=== PATIENT | male | born 1960 | race Two or more races ===

== ENCOUNTER 2024-11-21 19:05 | Inpatient (IN) | payer SELFPAY ==
[2024-11-21 19:06] VITALS: BMI 29.7
--- NOTE | 2024-11-21 20:10 | EKG_ITS ---
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
[2024-11-21 20:19] VITALS: BP 113/69; PULSE 50; RESP 24; TEMP 36.5; O2SAT 97
--- NOTE | 2024-11-21 20:23 | XR_ITS ---
Examination: CT abdomen with intravenous contrast CT pelvis with intravenous contrast 2-D coronal reconstructions 2-D sagittal reconstructions Date and time of exam:November 21, 2024 10:13 PM INDICATIONS: Severe left upper abdominal pain today. CTDI: vol (mGy) 9.81 DLP: (mGycm) 604 Technique: Multiple axial sections of the abdomen and pelvis have been obtained. 64 slice high-resolution scanner used. 3 mm axial sections have been obtained, post intravenous injection 60 cc Isovue-370 2-D sagittal, coronal reconstructions obtained. Low dose protocols were performed. One or more of the following dose reduction techniques were used; automated exposure control, adjustment of the mA and/or KV according to patient size, use of iterative reconstruction technique. Findings: 16 mm liver cyst No gallstones Low density areas in the spleen consistent with infarcts No pancreatic or adrenal mass No gallstones 5.6 cm right renal cyst Abdominal aortic calcification no aneurysmal dilatation Small fat-containing umbilical hernia Normal appendix No bowel obstruction Intact urinary bladder Prostatomegaly transverse dimension 6.1 cm Mild lumbar spondylosis IMPRESSION: Multiple low-density areas in the spleen consistent with splenic infarcts
--- NOTE | 2024-11-21 20:23 | XR_ITS ---
Examination: PA chest single view TECHNIQUE: Upright PA chest single view Exam date and time: November 21, 2024 at 2035 hours Comparison July 01, 2023 INDICATIONS: Chest pain today. FINDINGS: Mild prominence left ventricle Mild vascular congestion. No lumbar pneumonia Suspicious for early pneumonia left base IMPRESSION: Suspicious for early pneumonia left base
--- NOTE | 2024-11-21 20:24 | EDRME_ITS ---
Rapid Medical Screening Exam ON LICENSE OF [facility] Arrival date/time: 11/21/24 19:05 64M with history of DM and CAD (patient takes daily aspirin) presents to ED with 1 day of epigastric and L-sided ab pain. Patient denies N/V, SOB, diarrhea, and dysuria. Chief Complaint: Abdominal Pain Vital signs: Vital Signs Temperature 97.7 F 11/21/24 20:19 Pulse Rate 50 L 11/21/24 20:19 Respiratory Rate 24 H 11/21/24 20:19 Blood Pressure 113/69 11/21/24 20:19 Pulse Oximetry (%) 97 11/21/24 20:19 Oxygen Delivery Method Room Air 11/21/24 20:19
[2024-11-21 20:59] LABS: Basophils # (Auto) 0.1 Thou/mm3 (0.0-0.2); Basophils % (Auto) 1 % (0-2.5); Eosinophils # (Auto) 0.1 Thou/mm3 (0.0-0.5); Eosinophils % (Auto) 0 % (0-10); Hematocrit 43.5 % (41.0-53.0); Hemoglobin 15.1 g/dL (13.5-16.0); Immature Granulocytes % (Auto) 1 % (0-0); Immature Granulocytes Auto 0.06 Thou/mm3 (0.00-0.00); Lymphocytes # (Auto) 1.6 Thou/mm3 (1.0-4.8); Lymphocytes % (Auto) 13 % (10-50); Mean Corpuscular HGB Conc 34.7 g/dl (31.0-37.0); Mean Corpuscular Hemoglobin 31.3 pg (25.0-35.0); Mean Corpuscular Volume 90 fL (80-100); Monocytes # (Auto) 0.7 Thou/mm3 (0.0-0.8); Monocytes % (Auto) 5 % (0-12); Neutrophils # (Auto) 10.3 Thou/mm3 (1.8-7.7); Neutrophils % (Auto) 81 % (37-80); Nucleated Red Blood Cell % 0 /100 WBC (0); Platelet Count 142 Thou/mm3 (140-440); RDW Standard Deviation 42.4 fL (35.1-43.9); Red Blood Count 4.83 Miln/mm3 (4.50-5.90); White Blood Count 12.7 Thou/mm3 (3.8-10.6)
[2024-11-21 20:59] LABS: Collection Type, Urine Clean Catch; Squamous Epithelial Cell,Urine 0 /hpf (0-5); WBC,Urine 0 /hpf (0-5)
[2024-11-21 21:08] LABS: Bilirubin,Urine Negative (Negative); Blood,Urine Negative (Negative); Clarity,Urine Clear (Clear/Hazy); Color,Urine Yellow (Lt Yel-Yel); Glucose, Urine 3+ (Negative); Ketones,Urine Negative (Negative); Leukocyte Esterase,Urine Negative (Negative); Nitrite,Urine Negative (Negative); Protein,Urine 1+ (Neg - Trace); RBC,Urine 2 /hpf (0-3); Specific Gravity,Urine 1.031 (1.001-1.035); Urobilinogen,Urine Negative mg/dL (0.0-1.0)
[2024-11-21 21:09] LABS: Sperm,Urine Present
[2024-11-21 21:14] LABS: Alanine Aminotransferase 20 U/L (10-49); Albumin, Serum 4.4 gm/dL (3.4-4.8); Albumin/Globulin Ratio 1.6 (1.2-2.2); Alkaline Phosphatase 58 U/L (46-116); Anion Gap 6 (7-16); Aspartate Amino Transferase 21 U/L (0-34); BUN/Creatinine Ratio 15 Ratio (12-20); Bilirubin,Total 0.5 mg/dL (0.3-1.2); Blood Urea Nitrogen 15 mg/dL (9-23); Calcium 9.7 mg/dL (8.3-10.6); Calcium (Corrected) 9.7 mg/dL (8.5-10.1); Carbon Dioxide 22.6 mMol/L (20.0-31.0); Chloride 107 mMol/L (98-107); Estimated Creatinine Clearance 96.2 mL/min (>60); Globulin 2.7 gm/dL (2.3-3.5); Glucose 119 mg/dL (74-106); Lipase 32 U/L (12-53); Osmolality,Calculated 273 (275-295); Potassium 4.5 mMol/L (3.4-5.1); Sodium 136 mMol/L (136-145); Total Protein 7.1 gm/dL (5.7-8.2); Troponin I < 0.020 ng/mL (0.0-0.045); eGFR > 60 See Note
[2024-11-21 23:39] VITALS: BP 130/77; PULSE 50; RESP 21; TEMP 37.1
[2024-11-22] VITALS (14 sets, daily range): BP systolic 120–138; BP diastolic 51–76; PULSE 46–54; RESP 12–18; TEMP 36.3–36.8; O2SAT 91–99; BMI 31.5
--- NOTE | 2024-11-22 00:01 | PD.EDABDPN ---
ED Abdominal Pain RME/HPI General Chief Complaint: Abdominal Pain Stated complaint: LUQ ABD PAIN 05/02, SINCE 1PM Arrival date/time: 11/21/24 19:05 RME / HPI RME / HPI narrative: 11/21/24 19:05 64M with history of DM and CAD (patient takes daily aspirin) presents to ED with 1 day of epigastric and L-sided ab pain. Patient denies N/V, SOB, diarrhea, and dysuria. ------- Dr. Pollard?s Main ED Evaluation: Related Data Home Medications ?Medication ?Instructions ?Recorded ?Confirmed aspirin 325 mg tablet 325 mg PO QDAY 12/20/20 12/20/20 famotidine 40 mg tablet 40 mg PO QDAY PRN Heartburn 12/20/20 12/20/20 losartan 50 mg tablet 50 mg PO QDAY 12/20/20 12/20/20 metoprolol succinate 25 mg 25 mg PO QDAY 12/20/20 12/20/20 tablet,extended release 24 hr repaglinide 1 mg tablet 1 mg PO QDAY 12/20/20 12/20/20 rosuvastatin 20 mg tablet 20 mg PO QDAY 12/20/20 12/20/20 sitagliptin phos 50 mg-metformin 1 tab PO QDAY 12/20/20 12/20/20 ER 1,000 mg tablet,extend rel 24h mp (Janumet XR) Allergies Allergy/AdvReac Type Severity Reaction Status Date / Time No Known Allergies Allergy Verified 07/01/23 15:08 Review of Systems Review of Systems Systems Reviewed: All systems reviewed, normal except as documented ED Exam Narrative Physical exam: GENERAL APPEARANCE: alert and oriented x 4, well-developed, well-nourished, no acute distress VITALS: All vitals were reviewed and the pulse ox is 97% on room air, which is normal according to my interpretation. HEENT: Normocephalic, atraumatic; pupils equal, round, reactive to light; EOMI; mucous membranes pink, moist; oropharynx clear NECK: Supple LUNGS: CTABL; no wheezes, no rales, no rhonchi HEART: Regular rate, regular rhythm; normal S1, S2; no murmurs ABDOMEN: non distended; normal BS; soft, no tenderness, no guarding, no rebound; no masses, no organomegaly, no hernia BACK: no CVA tenderness EXTREMITIES: atraumatic; no edema NEUROLOGIC: awake; alert and oriented x4; cranial nerves II-XII grossly intact; no focal sensory or motor deficits PSYCHIATRIC: appropriate mood and affect SKIN: warm, dry, normal color; no rashes Course Quality Measures none Orders Category Date Time Status CT Screening NOW Care 11/21/24 20:24 Active EKG (ED ONLY) *Do not use* NOW Care 11/21/24 20:10 Completed Insert IV NOW Care 11/21/24 20:[address] abdomen pelvis w con Stat Exams 11/21/24 20:23 Completed EKG (ED Only) Stat Exams 11/21/24 20:10 Draft XR chest 1V portable Stat Exams 11/21/24 20:23 Completed CBC Stat Lab 11/21/24 20:42 Completed Comprehensive Metabolic Panel Stat Lab 11/21/24 20:42 Completed Lipase Stat Lab 11/21/24 20:42 Completed Troponin I Stat Lab 11/21/24 20:42 Completed Urinalysis Stat Lab 11/21/24 20:54 Completed Vital Signs Vital signs: Vital Signs Temperature 97.7 F 11/21/24 20:19 Pulse Rate 50 L 11/21/24 20:19 Respiratory Rate 24 H 11/21/24 20:19 Blood Pressure 113/69 11/21/24 20:19 Pulse Oximetry (%) 97 11/21/24 20:19 Oxygen Delivery Method Room Air 11/21/24 20:19 Abdominal Pain MDM Patient data External records reviewed:: [facility] previous records (Per chart review, patient was seen her) Discharge Plan Prescriptions/Referrals Prescriptions/Med Rec: No Action losartan 50 mg Tablet 50 mg PO QDAY aspirin 325 mg Tablet 325 mg PO QDAY famotidine 40 mg Tablet 40 mg PO QDAY PRN (Reason: Heartburn) metoprolol succinate 25 mg tablet extended release 24 hr 25 mg PO QDAY repaglinide 1 mg Tablet 1 mg PO QDAY rosuvastatin 20 mg tablet 20 mg PO QDAY Patient Comments: TAKE 1 TABLET BY MOUTH EVERY DAY Janumet XR 50-1,000 mg tablet, ER multiphase 24 hr 1 tab PO QDAY Referrals: No Primary/Family,Physician [Primary Care Provider] - In 1 week Patient/Caregiver Discharge Instructions Print Language: Burmese
--- NOTE | 2024-11-22 00:33 | EDNOTE_ITS ---
ED Abdominal Pain RME/HPI General Chief Complaint: Abdominal Pain Stated complaint: LUQ ABD PAIN 9/10, SINCE 1PM Arrival date/time: 11/21/24 19:05 Source: patient Mode of arrival: ambulatory Limitations: no limitations RME / HPI RME / HPI narrative: 11/21/24 19:05 64M with history of DM and CAD (patient takes daily aspirin) presents to ED with 1 day of epigastric and L-sided ab pain. Patient denies N/V, SOB, diarrhea, and dysuria. Dr. Pollard?s Main ED Evaluation: 64-year-old male with a medical history of hypertension, type 2 diabetes mellitus, hyperlipidemia, coronary artery disease s/p stent placement, atrial fibrillation, and daily tobacco use presents to the ED with acute abdominal pain that began around 1300 the previous day. He localizes the pain to the epigastric and left upper quadrant regions, describing it as constant with waxing and waning intensity, initially rated 9/10. He denies associated symptoms including nausea, vomiting, diarrhea, dysuria, chest pain, fever, chills, cough, or shortness of breath. No recent illness or travel. He recalls eating lunch around 11 AM prior to symptom onset. He has a history of myocardial infarction and is currently on aspirin and metoprolol. He occasionally notices a low heart rate but denies dizziness or syncope. No known history of clotting disorders. Patient follows with local skoog operator Dr. Tejada. Related Data Home Medications ?Medication ?Instructions ?Recorded ?Confirmed aspirin 325 mg tablet 325 mg PO QDAY 12/20/2011/23 famotidine 40 mg tablet 40 mg PO QDAY PRN Heartburn 12/20/20 12/20/20 losartan 50 mg tablet 50 mg PO QDAY 12/20/2012/20 metoprolol succinate 25 mg 25 mg PO QDAY 12/20/2011/23 tablet,extended release 24 hr repaglinide 1 mg tablet 1 mg PO QDAY 12/20/20 rosuvastatin 20 mg tablet 20 mg PO QDAY 12/20/2012/20 sitagliptin phos 50 mg-metformin 1 tab PO QDAY 1 12/20/20 ER 1,000 mg tablet,extend rel 24h mp (Janumet XR) Allergies Allergy/AdvReac Type Severity Reaction Status Date / Time No Known Allergies Allergy Verified 07/01/23 15:08 Review of Systems Review of Systems Systems Reviewed: All systems reviewed, normal except as documented Past Medical History Past Medical History CARDIAC: Positive Cardiac Disorders, Myocardial Infarction, Atrial Fibrillation and Hypertension; Negative Congestive Heart Failure RESPIRATORY: Negative Chronic Obstructive Pulmonary Disease (COPD) or Asthma GENITOURINARY: Negative Renal Disease ENDOCRINE: Positive Diabetes Mellitus Type 2; Negative Diabetes Mellitus Type 1 HEMATOLOGIC: Negative Sickle Cell Disease Surgical History SURGICAL: Positive Cardiac Surgery and Coronary Stent Social History SMOKING STATUS: Current every day smoker SECOND HAND EXPOSURE: No SUBSTANCE USE: does not use ED Exam Narrative Physical exam: GENERAL APPEARANCE: alert and oriented x 4, well-developed, well-nourished, no acute distress VITALS: All vitals were reviewed and the pulse ox is % on room air, which is normal according to my interpretation. HEENT: Normocephalic, atraumatic; pupils equal, round, reactive to light; EOMI; mucous membranes pink, moist; oropharynx clear NECK: Supple LUNGS: CTABL; no wheezes, no rales, no rhonchi HEART: Regular rate, regular rhythm; normal S1, S2; no murmurs ABDOMEN: non distended; normal BS; soft, tenderness to left upper quadrant, no guarding, no rebound; no masses, no organomegaly, no hernia BACK: no CVA tenderness EXTREMITIES: atraumatic; no edema NEUROLOGIC: awake; alert and oriented x4; cranial nerves II-XII grossly intact; no focal sensory or motor deficits PSYCHIATRIC: appropriate mood and affect SKIN: warm, dry, normal color; no rashes General Limitations: Present no limitations Course Course Course Narrative: CXR is ordered for determining etiology of chest pain. Quality Measures none Orders Category Date Time Status CT Screening NOW Care 11/21/24 20:24 Active EKG (ED ONLY) *Do not use* NOW Care 11/21/24 20:10 Completed Insert IV NOW Care 11/21/24 20:23 Active Consult to General Surgery Stat Cons 11/22/24 01:[address] abdomen pelvis w con Stat Exams 11/21/24 20:23 Completed EKG (ED Only) Stat Exams 11/21/24 20:10 Draft XR chest 1V portable Stat Exams 11/21/24 20:23 Completed Blood Culture (Lab) Stat Lab 11/22/24 01:30 Received CBC Stat Lab 11/21/24 20:42 Completed Comprehensive Metabolic Panel Stat Lab 11/21/24 20:42 Completed Lactate (Lactic Acid) Stat Lab 11/22/24 01:35 Completed Lipase Stat Lab 11/21/24 20:42 Completed Procalcitonin Stat Lab 11/22/24 01:35 Completed Troponin I Stat Lab 11/21/24 20:42 Completed Urinalysis Stat Lab 11/21/24 20:54 Completed HYDROmorphone INJ [Dilaudid Inj] Med 11/22/24 01:30 Discontinued 0.5 mg IVP Q30MIN PRN Ondansetron Inj [Zofran Inj] Med 11/22/24 01:30 Discontinued 4 mg IV X1 ONE Sodium Chloride 0.9% 1000 ml [Ns] 1,000 ml Med 11/22/24 01:30 Discontinued IV 999 mls/hr Vital Signs Vital signs: Vital Signs Temperature 97.7 F 11/21/24 20:19 Pulse Rate 50 L 11/21/24 20:19 Respiratory Rate 24 H 11/21/24 20:19 Blood Pressure 113/69 11/21/24 20:19 Pulse Oximetry (%) 97 11/21/24 20:19 Oxygen Delivery Method Room Air 11/21/24 20:19 Abdominal Pain MDM MDM Narrative MDM Narrative:: 64-year-old male with significant cardiovascular history, including CAD s/p stent placement, atrial fibrillation, hypertension, diabetes mellitus, and hyperlipidemia, presents with acute abdominal pain that began around 1300 the previous day. He localizes the pain to the epigastric and left upper quadrant regions, describing it as constant with waxing and waning intensity, initially rated 9/10 on arrival. On this encounter, he reports it is 6/10. Plan includes blood cultures, lactic acid, and procalcitonin; IV fluid resuscitation; and symptom management with IV hydromorphone for pain and ondansetron for nausea. Initial workup ordered by the midlevel provider includes EKG, chest X-ray, CT abdomen/pelvis with contrast, CBC, CMP, lipase, troponin, and urinalysis. Differential diagnoses includes gastritis, splenic infarcts, small bowel obstruction. 0129 Case was discussed with Dr. Abraham, general surgeon on-call, who accepted the consult. 0132 Case was further discussed with Dr. Jeffrey, who agreed to evaluate the patient for hospital admission. Scribe Attestation: I, Fouzia Mejia, am scribing for and in the presence of Dr. Pollard. Provider Notation: Although this document has been carefully reviewed, there may still be some phonetic and other typographical errors. These errors are purely grammatical due to imperfections in the software program and should not be construed in any way to compromise the substance of the patient's medical care during this visit. Patient data External records reviewed:: [facility] previous records Clinical information provided by:: patient Social determinants that could affect healthcare access:: none Patient has the following chronic illnesses:: see PMH How is presenting disease/condition affected by chronic disease/condition?: uneffected by Evaluation data The following diagnostics were reviewed and interpreted by me:: lab results, radiology exam(s) and EKG tracing(s) Lab and/or radiology exams considered but not ordered:: na Interpretation Summary: I personally reviewed the radiology data and agree with the radiologist's interpretation. Examination: PA chest single view TECHNIQUE: Upright PA chest single view Exam date and time: November 21, 2024 at 2035 hours Comparison July 01, 2023 INDICATIONS: Chest pain today. FINDINGS: Mild prominence left ventricle Mild vascular congestion. No lumbar pneumonia Suspicious for early pneumonia left base IMPRESSION: Suspicious for early pneumonia left base Examination: CT abdomen with intravenous contrast CT pelvis with intravenous contrast Date and time of exam:November 21, 2024 10:13 PM INDICATIONS: Severe left upper abdominal pain today. Findings: 16 mm liver cyst No gallstones Low density areas in the spleen consistent with infarcts No pancreatic or adrenal mass No gallstones 5.6 cm right renal cyst Abdominal aortic calcification no aneurysmal dilatation Small fat-containing umbilical hernia Normal appendix No bowel obstruction Intact urinary bladder Prostatomegaly transverse dimension 6.1 cm Mild lumbar spondylosis IMPRESSION: Multiple low-density areas in the spleen consistent with splenic infarcts Medications / Prescriptions Medications or Prescriptions considered but not ordered:: na Medication administrations:: Medication Administration History Acetaminophen (Acetaminophen 325 Mg Tablet) 650 mg PO Q6H PRN PRN Reason: Fever >101.5 Stop: 12/22/24 01:49 Hydrocodone Bitart/Acetaminophen (Hydrocodone/Apap 5/325 Tablet) 1 tab PO Q4HR PRN PRN Reason: PAIN SCALE 4-6 (Moderate Stop: 11/27/24 01:49 Albuterol/Ipratropium (Albuterol/Ipratropium (Duoneb) Rt Justine 3 Ml Nebu) 3 ml INH Q2HR PRN PRN Reason: SHORTNESS OF BREATH OR WHEEZE Stop: 12/22/24 04:10 Atorvastatin Calcium (Atorvastatin Calcium 20 Mg Tablet) 80 mg PO HS SHERIDAN Stop: 12/22/24 20:59 Hydromorphone HCl (Hydromorphone Inj 2 Mg/Ml Vial) 0.5 mg IVP Q2HR PRN PRN Reason: Pain >7/10 Ondansetron HCl (Ondansetron Inj 2 Mg/Ml Inj 2 Ml) 4 mg IV Q6HR PRN; Protocol PRN Reason: NAUSEA OR VOMITING Stop: 12/22/24 04:11 Pantoprazole Sodium (Pantoprazole Inj 40 Mg Vial) 40 mg IVP QDAY SHERIDAN Stop: 12/22/24 08:59 Discontinued Medications Hydromorphone HCl (Hydromorphone Inj 2 Mg/Ml Vial) 0.5 mg IVP Q30MIN PRN PRN Reason: PAIN Stop: 11/27/24 01:29 Last Admin: 11/22/24 01:40 Dose: 0.5 mg Documented By: EF Sodium Chloride (Ns) 1,000 mls @ 999 mls/hr IV .Q1H1M ONE Stop: 11/22/24 02:30 Last Infusion: 11/22/24 02:41 Dose: Infused Documented By: Admin: 11/22/24 01:40 Dose: 999 mls/hr Documented By: EF Ondansetron HCl (Ondansetron Inj 2 Mg/Ml Inj 2 Ml) 4 mg IV X1 ONE; Protocol Stop: 11/22/24 01:31 Last Admin: 11/22/24 01:40 Dose: 4 mg Documented By: EF as above, if any Consultations Consultation(s) initiated? (list below): Yes Consultation #1 (Physician, Specialty, Details): See narrative Diagnosis Differential diagnosis abdominal pain: other (See MDM) Most likely diagnosis given after review of the tests above:: see clinical impression below Admission Indicated Admission indicated?: indicated Explain why admission is indicated or not indicated:: Given the patient's complex medical history, need for specialist evaluation, and potential need for surgical or medical management, hospital admission is warranted for further workup and monitoring. Admission Request Was there a request for admission?: Yes Admission Attestation Admission request attestation: Discussed case with [] from Hospitalist service regarding admission. Discussed patients ED course, exam findings, labs, and radiology results. The Hospitalist [agrees,declines] to accept the patient for admission. Disposition Plan Disposition Plan: Admit Discharge Plan Problem List Clinical Impression: Infarction of spleen
[2024-11-22] MEDS: SODIUM CHLORIDE 0.9% 1000 ML 1,000 ML 999 ML IV (01:40)
[2024-11-22] MEDS: HYDROmorphone INJ 2 MG/ML VIAL 0.5 MG IVP ×3 (01:40→09:51)
[2024-11-22] MEDS: ONDANSETRON INJ 2 MG/ML INJ 2 ML 4 MG IV (01:40)
[2024-11-22 01:42] LABS: Lactate (Lactic Acid) 1.1 mMol/L (0.4-2.0)
--- NOTE | 2024-11-22 02:00 | XR_ITS ---
Examination: CTA abdomen, with intravenous contrast. CTA pelvis, with intravenous contrast. 2-D sagittal and coronal reconstructions. 3-D reconstructions. Date and time of exam: November 22, 2024 at 0233 hours Comparison November 21, 2024 INDICATIONS: Onset of abdominal pain in the left upper abdomen today, splenic infarct on CT abdomen and pelvis with contrast November 21, 2024 CTDI vol (mgy) 10.7 DLP (MGycm) 793 Technique: Multiple CTA images, 2.0 mm slice thickness, abdomen, pelvis, with the high-resolution 64 slice scanner. 100 cc Isovue-370 is administered intravenously. Sagittal and coronal 2-D reconstructions are obtained. 3-D reconstructions, angiographic images are obtained. 3-D postprocessing, including vascular maximum intensity projections. Low dose protocols were performed. One or more of the following dose reduction techniques were used; automated exposure control, adjustment of the mA and/or KV according to patient size, use of iterative reconstruction technique. Findings: Diffuse fatty infiltration throughout the liver No gallstones Large wedge-shaped defects in the spleen again identified Axial image 128 consistent with thrombus in a branch of the splenic artery Renal parenchymal scar formation Right renal cyst again noted No abnormal contrast extravasation and bowel No bowel obstruction Urinary bladder intact IMPRESSION: Splenic infarcts Axial image 128 demonstrates thrombus in a branch of the left splenic artery
[2024-11-22 03:52] LABS: Procalcitonin 0.07 ng/ml (0.0-0.49)
--- NOTE | 2024-11-22 04:05 | PC.NURSE ---
WE HAD DOWN TIME FROM [id number].
--- NOTE | 2024-11-22 04:07 | ESHP_ITS ---
Documentation for date of: 11/22/24 HPI History of Present Illness Chief complaint: abdominal pain History of present illness: The patient is 64-year-old male with previous medical history of hypertension, CAD s/p stent placement (2001 or 2002), type 2 diabetes who came to the ED due to severe abdominal pain 9 out of 10, located in the epigastric and left upper quadrant that started at approximately 1 PM the previous day. He reports pain as constant with waxing and waning intensity. After pain medications he reports pain improving, looks more comfortable. He reported that he had lunch as usual at approximately 11 AM. He denies traumas, nausea, vomiting, bloody, black stools, dysuria, shortness of breath, chest pain. In the ED he was hemodynamically stable, saturated well on room air, labs were significant for leukocytosis, hemoglobin 15.1. CT abdomen pelvis showed multiple splenic infarcts, chest x-ray showed early pneumonia left base. The patient is going to be admitted for severe abdominal pain due to multiple splenic infarcts for treatment and management and possible surgical intervention. Social history: Unemployed, earlier worked at [employer]. Smokes approximately 10 cigarettes/day for 20 years. Reports alcohol use once a few months. Denies using recreational drugs recently. Meds: Losartan 50 mg, rosuvastatin 20 mg, metoprolol 25 mg, repaglinide 1 mg, aspirin 325 mg, famotidine 40 mg, Januvia. Surgical history: Stent placement in 2001 or 2002. Review of Systems Review of Systems Systems Reviewed: All systems reviewed, normal except as documented Past Medical History Past Medical History CARDIAC: Positive Cardiac Disorders, Myocardial Infarction, Atrial Fibrillation and Hypertension; Negative Congestive Heart Failure RESPIRATORY: Negative Chronic Obstructive Pulmonary Disease (COPD) or Asthma GENITOURINARY: Negative Renal Disease ENDOCRINE: Positive Diabetes Mellitus Type 2; Negative Diabetes Mellitus Type 1 HEMATOLOGIC: Negative Sickle Cell Disease Surgical History SURGICAL: Positive Cardiac Surgery and Coronary Stent Social History SMOKING STATUS: Current every day smoker SECOND HAND EXPOSURE: No SUBSTANCE USE: does not use Exam Vital Signs Temp Pulse Resp BP Pulse Ox O2 Del Method 98.1 F 49 L 18 123/70 96 Room Air 11/22/24 00:05 11/22/24 00:05 11/22/24 00:05 11/22/24 00:05 11/22/24 00:05 11/22/24 00:05 Narrative Exam Physical Exam General: Awake and in no acute distress. Conversational and non-toxic appearing. HEENT: Normocephalic, atraumatic, mucous membranes moist. Heart: Regular rate and rhythm, no murmurs. Lungs: Mild diffuse wheezing Abdomen: Soft, nondistended, LUQ tenderness, positive bowel sounds. ?No guarding or rebound tenderness. Neurologic: Alert and oriented x3, no gross neurological deficit, and patient able to move all 4 extremities. Extremities: No edema. Skin: No rash or ecchymoses. Results: Labs 11/22/24 04:45 11/22/24 04:45 Labs: Short CBC 11/21/24 Range/Units 20:42 WBC 12.7 H (3.8-10.6) Thou/mm3 Hgb 15.1 (13.5-16.0) g/dL Hct 43.5 (41.0-53.0) % Plt Count 142 (140-440) Thou/mm3 BMP 11/21/24 20:42 Sodium 136 Potassium 4.5 Chloride 107 Carbon Dioxide 22.6 BUN 15 Creatinine 1.0 Glucose 119 H Calcium 9.7 Cardiac Enzymes 11/21/24 Range/Units 20:42 Troponin I < 0.020 (0.0-0.045) ng/mL Liver Function 11/21/24 Range/Units 20:42 Total Bilirubin 0.5 (0.3-1.2) mg/dL AST 21 (0-34) U/L ALT 20 (10-49) U/L Alkaline Phosphatase 58 (46-116) U/L Albumin 4.4 (3.4-4.8) gm/dL Urine 11/21/24 Range/Units 20:54 Urine Color Yellow (Lt Yel-Yel) Urine Clarity Clear (Clear/Hazy) Urine pH 6.0 (5.0-7.0) Ur Specific [place] 1.031 (1.001-1.035) Urine Protein 1+ A (Neg - Trace) Urine Glucose (UA) 3+ A (Negative) Quality Measures Quality Measures none Medications Home Medications and Allergies Home Medications ?Medication ?Instructions ?Recorded ?Confirmed ?Type aspirin 325 mg tablet 325 mg PO QDAY 12/20/2010/17 History famotidine 40 mg tablet 40 mg PO QDAY PRN Heartburn 12/20/20 11/22/24 History losartan 50 mg tablet 50 mg PO QDAY 12/20/2011/22 History metoprolol succinate 25 mg 25 mg PO QDAY 12/20/2010/17 History tablet,extended release 24 hr repaglinide 1 mg tablet 1 mg PO QDAY 12/20/20 History rosuvastatin 20 mg tablet 20 mg PO QDAY 12/20/2011/22 History sitagliptin phos 50 mg-metformin 1 tab PO QDAY 1 11/22/24 History ER 1,000 mg tablet,extend rel 24h mp (Janumet XR) Allergies Allergy/AdvReac Type Severity Reaction Status Date / Time No Known Allergies Allergy Verified 07/01/23 15:08 Visit Medications Acetaminophen (Acetaminophen 325 Mg Tablet) 650 mg PO Q6H PRN PRN Reason: Fever >101.5 Stop: 12/22/24 01:49 Hydrocodone Bitart/Acetaminophen (Hydrocodone/Apap 5/325 Tablet) 1 tab PO Q4HR PRN PRN Reason: PAIN SCALE 4-6 (Moderate Stop: 11/27/24 01:49 Hydromorphone HCl (Hydromorphone Inj 2 Mg/Ml Vial) 0.5 mg IVP Q2HR PRN PRN Reason: Pain >7/10 Pantoprazole Sodium (Pantoprazole Inj 40 Mg Vial) 40 mg IVP QDAY SHERIDAN Stop: 12/22/24 08:59 Discontinued Medications Hydromorphone HCl (Hydromorphone Inj 2 Mg/Ml Vial) 0.5 mg IVP Q30MIN PRN PRN Reason: PAIN Stop: 11/27/24 01:29 Last Admin: 11/22/24 01:40 Dose: 0.5 mg Sodium Chloride (Ns) 1,000 mls @ 999 mls/hr IV .Q1H1M ONE Stop: 11/22/24 02:30 Last Infusion: 11/22/24 02:41 Dose: Infused Ondansetron HCl (Ondansetron Inj 2 Mg/Ml Inj 2 Ml) 4 mg IV X1 ONE; Protocol Stop: 11/22/24 01:31 Last Admin: 11/22/24 01:40 Dose: 4 mg Assessment & Plan Plan The patient is 64-year-old male with previous medical history of hypertension, CAD s/p stent placement (2001 or 2002), type 2 diabetes who came to the ED due to severe abdominal pain 9 out of 10, located in the epigastric and left upper quadrant that started at approximately 1 PM the previous day. The patient was admitted for severe abdominal pain due to multiple splenic infarcts for treatment and management and possible surgical intervention. #Intractable abdominal pain #Multiple splenic infarct Ddx: embolic vs infectious Patient reports severe abdominal pain 9 out of 10, located in the epigastric and left upper quadrant that started at approximately 1 PM the previous day. He reports pain as constant with waxing and waning intensity. After pain medications he reports pain improving, looks more comfortable. Patient also has history of CAD, so there's suspicion of thromboembolu/thrombosis in the splenic/truncus coeliacus branches. Plan: - CTA abdomen with contrast - Dr. 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 Reports taking aspirin, last dose was 11/21 in the AM. Plan: - holding blood thinners, antiaggregation agents due to possibility of surgery - holding home BP medication due to normal blood pressure for now - atorvastatin 80 mg hs #Type 2 diabetes Plan: - SSI - hypoglycemia protocol - a1c ordered Health maintenance: FEN: NPO (possible surgery) DVT prophylaxis: SCDs GI prophylaxis: none Dispo: med surg CODE STATUS: Full code Plan of care discussed with attending Dr. David, PGY-[address] Jeffrey. Alysha Horton MD, PGY 1. Attending Provider Attestation/Addendum I attest that I was physically present for the evaluation, physical examination, lab and imaging review of the patient with the residents. I discussed the case with the residents and agree with the findings and plans of care as documented above. Patient is a 64 years old male with past medical history of hypertension, CAD status post stent placement, type 2 diabetes mellitus who presented to the ED with complaint of abdominal pain in the epigastric and left upper quadrant. Patient has been having severe pain since yesterday afternoon. He denies any nausea, vomiting, bloody or black tarry stool, fever or chills. Also denied any urinary symptoms. In the ED, his vitals were within normal limits. Lab results show WBC of 12.7, rest of the labs were nonconcerning. Patient underwent CT abdomen/pelvis which showed multiple low-density areas in the spleen consistent with splenic infarcts. General surgery was contacted by the ED, who recommended admission for further management. We will admit the patient for management of intractable abdominal pain secondary to multiple splenic infarct. We will start him on analgesics regimen. As needed antiemetics. We will obtain CTA abdomen/pelvis to look for possible cause of splenic infarct. We will keep patient n.p.o. until evaluated by general surgery. Started on insulin regimen for diabetes. Eliazar David MD
[2024-11-22 04:54] LABS: Basophils # (Auto) 0.1 Thou/mm3 (0.0-0.2); Basophils % (Auto) 1 % (0-2.5); Eosinophils # (Auto) 0.2 Thou/mm3 (0.0-0.5); Eosinophils % (Auto) 2 % (0-10); Hematocrit 40.6 % (41.0-53.0); Hemoglobin 14.2 g/dL (13.5-16.0); Immature Granulocytes % (Auto) 0 % (0-0); Immature Granulocytes Auto 0.03 Thou/mm3 (0.00-0.00); Lymphocytes # (Auto) 2.7 Thou/mm3 (1.0-4.8); Lymphocytes % (Auto) 26 % (10-50); Mean Corpuscular Hemoglobin 31.3 pg (25.0-35.0); Mean Corpuscular Volume 90 fL (80-100); Monocytes # (Auto) 0.8 Thou/mm3 (0.0-0.8); Monocytes % (Auto) 8 % (0-12); Neutrophils # (Auto) 6.6 Thou/mm3 (1.8-7.7); Neutrophils % (Auto) 63 % (37-80); Nucleated Red Blood Cell % 0 /100 WBC (0); Platelet Count 129 Thou/mm3 (140-440); RDW Standard Deviation 43.2 fL (35.1-43.9); Red Blood Count 4.53 Miln/mm3 (4.50-5.90); White Blood Count 10.4 Thou/mm3 (3.8-10.6)
[2024-11-22 05:32] LABS: Alanine Aminotransferase 14 U/L (10-49); Albumin, Serum 3.6 gm/dL (3.4-4.8); Albumin/Globulin Ratio 1.6 (1.2-2.2); Alkaline Phosphatase 53 U/L (46-116); Anion Gap 4 (7-16); Aspartate Amino Transferase 15 U/L (0-34); BUN/Creatinine Ratio 14 Ratio (12-20); Bilirubin,Total 0.6 mg/dL (0.3-1.2); Blood Urea Nitrogen 14 mg/dL (9-23); Calcium 8.4 mg/dL (8.3-10.6); Calcium (Corrected) 8.7 mg/dL (8.5-10.1); Carbon Dioxide 26.1 mMol/L (20.0-31.0); Cardiac Risk Estimate 2.9 RATIO (4.0-6.7); Chloride 109 mMol/L (98-107); Cholesterol 116 mg/dL (132-200); Estimated Creatinine Clearance 96.2 mL/min (>60); Globulin 2.3 gm/dL (2.3-3.5); Glucose 107 mg/dL (74-106); HDL Cholesterol 40 mg/dL (40-60); LDL Cholesterol,Calculated 58 mg/dL (0-130); Magnesium 2.1 mg/dL (1.6-2.6); Osmolality,Calculated 278 (275-295); Potassium 4.4 mMol/L (3.4-5.1); Sodium 139 mMol/L (136-145); Thyroid Stimulating Hormone 2.58 uIU/mL (0.55-4.78); Total Protein 5.9 gm/dL (5.7-8.2); Triglycerides 92 mg/dL (30-150); eGFR > 60 See Note
--- NOTE | 2024-11-22 07:16 | PC.NURSE ---
Received report from John KRUGER and assumed care of patient. Patient A&O x 4 with complaint of pain 04/01.
--- NOTE | 2024-11-22 07:36 | PC.CC ---
Patient is a 47 year-old female for GI Bleed Work Up. Shawna LOPEZ made [id number] contact with patient. ASW introduced self, role, and reason for visit. Patient appeared alert and oriented to self, location, and situation. Patient was pleasant and engaged in initial assessment. Patient confirmed information on demographics and reports to living alone. Patient reports that the medical decision maker if something should happen it would be her aunt, Hannah Sarah . At home patient ambulates independently and completes her own ADLs. Patient does not use any DME at home. Patient receives primary care at [facility] on the [address]. Upon discharge patient plans to return home. loan services professional to follow up with any discharge plan.
--- NOTE | 2024-11-22 07:49 | PC.CC ---
Patient is a 64 year-old male who presents to the hospital for Abdominal Pain. Shawna LOPEZ made [id number] contact with patient. ASW introduced self, role, and reason for visit. Patient appeared alert and oriented to self, location, and situation. Patient was pleasant and engaged in initial assessment. Patient confirmed information on the demographics and reports to living with his , Yamila Santos . Patient's is his medical decision maker in the event he is unable to make his own medical decisions. At home patient ambulates independently and and completes his own ADLs. Patient does not require the use of any DME. Patient receives primary care with Dr. Martinez and uses [facility] for prescription medications. Upon discharge the patient plans to return back home. guest services associate to follow up with any discharge needs.
[2024-11-22] MEDS: PANTOPRAZOLE INJ 40 MG VIAL IVP (09:09)
--- NOTE | 2024-11-22 10:03 | PC.LAC ---
Report given to Ladan KRUGER.
--- NOTE | 2024-11-22 11:16 | ESPR_ITS ---
Documentation for date of: 11/22/24 Subjective Subjective Interval history: Cj Santos is a 64-year-old male with a PMHx of CAD status post stent (2001 or 2002), type 2 diabetes mellitus, and hypertension who presented on 11/22 with acute onset epigastric/left upper quadrant abdominal pain. Patient states that pain started at 1 PM on 0/, 9/10 in intensity, that waxed and waned. Denies trauma, nausea, vomiting, change in bowel habits, chest discomfort, shortness of breath. CT A/P showed splenic infarction and CTA A/P showed possible thrombus in branch of splenic artery. 11/22: Seen and examined at bedside in ED. 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 Denies being on any blood thinners other than baby aspirin. Otherwise, patient does not have any other complaints at this time. Exam Vital Signs Temp Pulse Resp BP Pulse Ox O2 Del Method O2 Flow Rate 98.3 F 51 L 17 127/73 95 Nasal Cannula 2 11/22/24 10:20 11/22/24 10:20 11/22/24 10:20 11/22/24 10:20 11/22/24 10:20 11/22/24 10:20 11/22/24 10:20 Narrative Exam General: AOx3, no acute distress, able to speak full sentences HEENT: NC/AT, mucous membranes moist, bilateral sclera anicteric Cardiovascular: regular rate and rhythm, S1/S2 present, no murmurs appreciated Pulmonary: clear to auscultation bilaterally, no rales/rhonchi/wheezes Abdominal: tenderness in epigastrium and LUQ, soft, non-distended, no rebound/guarding Musculoskeletal: normal ROM, no peripheral edema, dorsalis pedis pulses 3+ Skin: warm and dry, intact, no rashes Neuro: CN II-XII intact, no focal deficits Objective Labs 11/22/24 04:45 11/22/24 04:45 Labs: Laboratory Results - last 24 hr 11/21/24 11/21/24 11/22/24 20:42 20:54 01:35 WBC 12.7 H RBC 4.83 Hgb 15.1 Hct 43.5 MCV 90 MCH 31.3 MCHC 34.7 RDW Std Deviation 42.4 Plt Count 142 Neut % (Auto) 81 H Lymph % (Auto) 13 Turner % (Auto) 5 Eos % (Auto) 0 Baso % (Auto) 1 Neut # (Auto) 10.3 H Lymph # (Auto) 1.6 Turner # (Auto) 0.7 Eos # (Auto) 0.1 Baso # (Auto) 0.1 Immature Gran # (Auto) 0.06 H Absolute Nucleated RBC 0.00 Immature Gran % 1 H Nucleated RBC % 0 Sodium 136 Potassium 4.5 Chloride 107 Carbon Dioxide 22.6 Anion Gap 6 L BUN 15 Creatinine 1.0 Estim Creat Clear Calc 96.2 eGFR > 60 BUN/Creatinine Ratio 15 Glucose 119 H Calculated Osmolality 273 L Lactic Acid 1.1 Calcium 9.7 Corrected Calcium 9.7 Magnesium Total Bilirubin 0.5 AST 21 ALT 20 Alkaline Phosphatase 58 Troponin I < 0.020 Total Protein 7.1 Albumin 4.4 Globulin 2.7 Albumin/Globulin Ratio 1.6 Triglycerides Cholesterol LDL Cholesterol, Calc HDL Cholesterol Cholesterol/HDL Ratio Lipase 32 Procalcitonin 0.07 TSH Ur Collection Type Clean Catch Urine Color Yellow Urine Clarity Clear Urine pH 6.0 Ur Specific [place] 1.031 Urine Protein 1+ A Urine Glucose (UA) 3+ A Urine Ketones Negative Urine Blood Negative Urine Nitrite Negative Urine Bilirubin Negative Urine Urobilinogen (Auto) Negative Ur Leukocyte Esterase Negative Urine RBC 2 Urine WBC 0 Ur Squamous Epith Cells 0 Urine Bacteria None Urine Sperm Present A 11/22/24 04:45 WBC 10.4 RBC 4.53 Hgb 14.2 Hct 40.6 L MCV 90 MCH 31.3 MCHC 35.0 RDW Std Deviation 43.2 Plt Count 129 L Neut % (Auto) 63 Lymph % (Auto) 26 Turner % (Auto) 8 Eos % (Auto) 2 Baso % (Auto) 1 Neut # (Auto) 6.6 Lymph # (Auto) 2.7 Turner # (Auto) 0.8 Eos # (Auto) 0.2 Baso # (Auto) 0.1 Immature Gran # (Auto) 0.03 H Absolute Nucleated RBC 0.00 Immature Gran % 0 Nucleated RBC % 0 Sodium 139 Potassium 4.4 Chloride 109 H Carbon Dioxide 26.1 Anion Gap 4 L BUN 14 Creatinine 1.0 Estim Creat Clear Calc 96.2 eGFR > 60 BUN/Creatinine Ratio 14 Glucose 107 H Calculated Osmolality 278 Lactic Acid Calcium 8.4 Corrected Calcium 8.7 Magnesium 2.1 Total Bilirubin 0.6 AST 15 ALT 14 Alkaline Phosphatase 53 Troponin I Total Protein 5.9 Albumin 3.6 D Globulin 2.3 Albumin/Globulin Ratio 1.6 Triglycerides 92 Cholesterol 116 L LDL Cholesterol, Calc 58 HDL Cholesterol 40 Cholesterol/HDL Ratio 2.9 L Lipase Procalcitonin TSH 2.58 Ur Collection Type Urine Color Urine Clarity Urine pH Ur Specific [place] Urine Protein Urine Glucose (UA) Urine Ketones Urine Blood Urine Nitrite Urine Bilirubin Urine Urobilinogen (Auto) Ur Leukocyte Esterase Urine RBC Urine WBC Ur Squamous Epith Cells Urine Bacteria Urine Sperm Quality Measures Quality Measures none Assessment & Plan Assessment Current Active Medications: Generic Name Dose Route Start Last Admin Trade Name Freq PRN Reason Stop Dose Admin Acetaminophen 650 mg 11/22/24 01:50 Acetaminophen 325 Mg Tablet PO 12/22/24 01:49 Q6H PRN Fever >101.5 Hydrocodone Bitart/Acetaminophen 1 tab 11/22/24 01:50 Hydrocodone/Apap 5/325 Tablet PO 11/27/24 01:49 Q4HR PRN PAIN SCALE 4-6 (Moderate Albuterol/Ipratropium 3 ml 11/22/24 04:11 Albuterol/Ipratropium (Duoneb) Rt Justine 3 Ml Nebu INH 12/22/24 04:10 Q2HR PRN SHORTNESS OF BREATH OR WHEEZE Atorvastatin Calcium 80 mg 11/22/24 21:00 Atorvastatin Calcium 20 Mg Tablet PO 12/22/24 20:59 HS SHERIDAN Dextrose 25 ml 11/22/24 05:46 Dextrose 50%-Water Inj 50 Ml Syringe IV 12/22/24 05:45 Q15MIN PRN BG 50-70 responsive npo pt Dextrose 50 ml 11/22/24 05:46 Dextrose 50%-Water Inj 50 Ml Syringe IV 12/22/24 05:45 Q15MIN PRN BG <50 OR BG <70 & pt unresponsive Glucagon 1 mg 11/22/24 05:46 Glucagon Inj 1 Mg Vial IM Q15MIN PRN BG <70, and no IV access Hydromorphone HCl 0.5 mg 11/22/24 01:53 11/22/24 09:51 Hydromorphone Inj 2 Mg/Ml Vial IVP 0.5 mg Q2HR PRN Administration Pain >7/10 Insulin Human Lispro 0 unit 11/22/24 06:00 11/22/24 06:08 Insulin Lispro (Admelog) 1 Unit/0.01 Ml Unit SC 12/22/24 05:59 Not Given Q6HR SHERIDAN Protocol Ondansetron HCl 4 mg 11/22/24 04:12 Ondansetron Inj 2 Mg/Ml Inj 2 Ml IV 12/22/24 04:11 Q6HR PRN NAUSEA OR VOMITING Protocol Pantoprazole Sodium 40 mg 11/22/24 09:00 11/22/24 09:09 Pantoprazole Inj 40 Mg Vial IVP 12/22/24 08:59 40 mg QDAY SHERIDAN Administration Plan Cj Santos is a 64-year-old male with a PMHx of CAD status post stent (2001 or 2002), type 2 diabetes mellitus, and hypertension who presented on 11/22 with acute onset epigastric/left upper quadrant abdominal pain. Patient states that pain started at 1 PM on , 910 in intensity, that waxed and waned. Denies trauma, nausea, vomiting, change in bowel habits, chest discomfort, shortness of breath. CT A/P showed splenic infarction and CTA A/P showed possible thrombus in branch of splenic artery. #Acute abdominal pain #Splenic infarct Acute onset severe epigastric/LUQ abdominal pain, 9 out of 10. After pain medications he reports pain improving. CT A/P showed splenic infarction and CTA A/P showed possible thrombus in branch of splenic artery. ? General Surgery consulted, appreciate recommendations ? Follow-up cardiac echo ? Heparin drip ? Pain management: Tylenol, [place], Dilaudid 0.5 mg every 2 hours ? Clear liquid diet, n.p.o. 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 TGL 92, cholesterol 116, LDL 58. ? Pending med rec ? Hold home antihypertensives as BP in range ? Atorvastatin 80 mg PO HS #Type 2 diabetes mellitus ? SSI ? Hypoglycemia protocol in place ? Follow-up a1c Health maintenance: FEN: clear liquid diet, NPO after midnight DVT prophylaxis: heparin drip, SCDs GI prophylaxis: none Dispo: med surg CODE STATUS: Full code ----- Plan discussed with attending physician Dr. Atul Puentes MD PGY-1 Internal Medicine Attending Provider Attestation/Addendum I reviewed labs, imaging, EKG, home medications and prior available records. Face to face evaluation was performed by me. I have personally examined the patient and discussed assessment and plan with the IM team. I reviewed the resident note and agree with the plan with exceptions as below. Abdominal pain, left upper quadrant Splenic infarction Splenic thrombus CAD Tobacco use Essential hypertension Type 2 diabetes mellitus Management of pain as needed Started heparin drip given the possible thrombus Consulted surgery: No plans for surgery at this time but will follow Counseled the patient regarding the importance of smoking cessation
--- NOTE | 2024-11-22 11:44 | PD.SURCONS ---
HPI Consult details Consult date: 11/22/24 Reason for consultation narrative: Splenic infarction History of present illness: 64-year-old male with history of diabetes, hypertension, CAD status post stent placement presented to the emergency department with acute onset of left upper quadrant abdominal pain. He denies history of trauma. He started developing left upper quadrant abdominal pain that has been getting progressively worse. He denies nausea, vomiting, fever, chills, night sweats or fatigue. He also denies recent history of trauma. CT scan revealed splenic infarction. CT angiogram revealed possible thrombus in a branch of splenic artery. Review of Systems Constitutional Constitutional: Denies chills, Denies fever(s) and Reports weight loss Cardiovascular Cardiovascular: Denies chest pain Respiratory Respiratory: Denies cough Gastrointestinal Gastrointestinal: Reports abdominal pain, Denies nausea and Denies vomiting Hematologic/Lymphatic Hematologic/Lymphatic: Denies easy bleeding and Denies easy bruising Past Medical History Surgical History OTHER SURGICAL HX: Cardiac cath with stent placement Social History SMOKING STATUS: Never smoker SUBSTANCE USE: does not use ALCOHOL: Former Meds Home Medications and Allergies Home Medications ?Medication ?Instructions ?Recorded ?Confirmed ?Type aspirin 325 mg tablet 325 mg PO QDAY 12/20/20 12/20/20 History famotidine 40 mg tablet 40 mg PO QDAY PRN Heartburn 12/20/20 12/20/20 History losartan 50 mg tablet 50 mg PO QDAY 12/20/20 12/20/20 History metoprolol succinate 25 mg 25 mg PO QDAY 12/20/20 12/20/20 History tablet,extended release 24 hr repaglinide 1 mg tablet 1 mg PO QDAY 12/20/20 12/20/20 History rosuvastatin 20 mg tablet 20 mg PO QDAY 12/20/20 12/20/20 History sitagliptin phos 50 mg-metformin 1 tab PO QDAY 12/20/20 12/20/20 History ER 1,000 mg tablet,extend rel 24h mp (Janumet XR) Allergies Allergy/AdvReac Type Severity Reaction Status Date / Time No Known Allergies Allergy Verified 07/01/23 15:08 Exam Vital Signs Temp Pulse Resp BP Pulse Ox O2 Del Method O2 Flow Rate 98.3 F 51 L 17 127/73 95 Nasal Cannula 2 11/22/24 10:20 11/22/24 10:20 11/22/24 10:20 11/22/24 10:20 11/22/24 10:20 11/22/24 10:20 11/22/24 10:20 Constitutional Constitutional: no acute distress Routine Abdominal Exam Comments: Abdomen is soft and nondistended. He has tenderness to deep palpation over the left upper quadrant. There is no ecchymosis Results Results: Laboratory Laboratory results: results reviewed Results: Imaging Imaging narrative: CT angiogram of abdomen and pelvis images reviewed, radiologist interpretation noted Assessment & Plan Problem List (1) Infarction of spleen: Status: Acute Plan Obtain cardiac echo to rule out vegetation as the cause of splenic artery thrombus. If patient continues to have pain in the left upper quadrant he may require splenectomy. I will follow.
--- NOTE | 2024-11-22 11:48 | ECHO_ITS ---
Transthoracic Echo Report Ht (in): 73 Wt (lb): 240 Exam Location: Portable Status: Inpatient Space And Storage Clerk: BARRY Palomino^^^^ Indications: Procedure Performed: BP: 122 / 74 HR: 48 Technical Quality: Fair MEASUREMENTS (Male / Female) Normal Values 2D ECHO LV Diastolic Diameter PLAX 5.8 cm 4.2 - 5.9 / 3.9 - 5.3 cm LV Systolic Diameter PLAX 3.8 cm IVS Diastolic Thickness 0.8 cm 0.6 - 1.0 / 0.6 - 0.9 cm LVPW Diastolic Thickness 0.9 cm 0.6 - 1.0 / 0.6 - 0.9 cm LV Relative Wall Thickness 0.3 LVOT Diameter 1.8 cm Aortic Root Diameter 3.9 cm LA Systolic Diameter LX 4.2 cm 3.0 - 4.0 / 2.7 - 3.8 cm LA Volume Index 46.4 cm?/m? 16 - 28 cm?/m? DOPPLER AV Peak Velocity 126.5 cm/s AV Peak Gradient 6.4 mmHg AV Mean Gradient 4.0 mmHg AV Velocity Time Integral 24.9 cm LVOT Peak Velocity 103.0 cm/s LVOT Peak Gradient 4.2 mmHg LVOT Velocity Time Integral 23.8 cm LVOT Cardiac Index 1213.3 cm?/min?m? AV Area Cont Eq vti 2.4 cm? AV Area Cont Eq pk 2.1 cm? MV Area PHT 1.4 cm? MR Peak Velocity 311.0 cm/s MR Peak Gradient 38.7 mmHg Mitral E Point Velocity 52.1 cm/s Mitral A Point Velocity 73.2 cm/s Mitral E to A Ratio 0.7 LV E' Lateral Velocity 7.0 cm/s Mitral E to LV E' Lateral Ratio 7.5 LV E' Septal Velocity 7.2 cm/s Mitral E to LV E' Septal Ratio 7.2 TR Peak Velocity 196.5 cm/s TR Peak Gradient 15.4 mmHg PV Peak Velocity 91.8 cm/s PV Peak Gradient 3.4 mmHg RVOT Peak Velocity 45.1 cm/s FINDINGS Left Ventricle Normal left ventricular size, wall thickness, systolic function with no obvious regional wall motion abnormalities.there is grade I diastolic dysfunction of the left ventricle (impaired relaxation pattern). The left ventricular ejection fraction is normal, estimated at 60-65%. Right Ventricle The right ventricle is normal in size and systolic function. The estimated right ventricular systolic pressure, 22 mmHg. Left Atrium Mildly increased left atrial volume 46.4 mL/m?. Right Atrium The right atrial cavity size is mildly increased. Atrial Septum The interatrial septum appears normal with no evidence of a shunt. Aorta The aorta is normal by two-dimensional, color flow and Doppler interrogation. Mitral Valve Mild thickening of the mitral valve leaflets. Mild mitral regurgitation. Mild mitral annular calcification. Aortic Valve Aortic valve sclerosis. Tricuspid Valve There is trace tricuspid valve regurgitation. Pulmonic Valve Trivial pulmonic valve regurgitation. Vessels The pulmonary artery appears normal. The inferior vena cava pulmonary and hepatic veins appear normal. Pericardium The pericardium is normal by two-dimensional imaging. There is no significant pericardial effusion. CONCLUSIONS Indication: Rule out vegetations. Splenic Thrombus. Normal LV size and function with estimated EF 60-65%. Stage 1 diastolic dysfunction. Normal RV size and function. Normal RVSP 25 mm hg. Mildly dilated LA and RA. Trace TR. Mild AV sclerosis without stenosis. Mild MR & MAC Scott Solitarioumananjuma (Electronically Signed) Final Date: 22 November 2024 19:18
[2024-11-22 11:53] LABS: INR 1.1 (0.9-1.3); Partial Thromboplastin Time 27.6 Seconds (22.0-36.0); Prothrombin Time 11.8 Seconds (9.0-12.2)
[2024-11-22] MEDS: HEPARIN SOD INJ 5000 UNIT/ML VIAL 4000 UNIT IV (12:44)
[2024-11-22] MEDS: Heparin/D5w 25K 250 ML Ivpb 25,000 UNIT/250 ML BAG 10.048 UNIT IV (12:45)
[2024-11-22 16:52] LABS: Glucose Estimated Average 163 mg/dL (80-131); Hemoglobin A1C 7.3 % Hgb (4.8-6.0)
[2024-11-22 19:33] LABS: Partial Thromboplastin Time 40.7 Seconds (22.0-36.0)
[2024-11-22] MEDS: HEPARIN SOD INJ 5000 UNIT/ML VIAL 2000 UNIT IVP (20:11)
[2024-11-22] MEDS: ATORVASTATIN CALCIUM 20 MG TABLET 80 MG PO (20:15)
[2024-11-23 03:36] LABS: Alanine Aminotransferase 13 U/L (10-49); Albumin, Serum 3.9 gm/dL (3.4-4.8); Albumin/Globulin Ratio 1.7 (1.2-2.2); Alkaline Phosphatase 59 U/L (46-116); Anion Gap 7 (7-16); Aspartate Amino Transferase 17 U/L (0-34); BUN/Creatinine Ratio 12 Ratio (12-20); Bilirubin,Total 0.6 mg/dL (0.3-1.2); Blood Urea Nitrogen 12 mg/dL (9-23); Calcium 8.8 mg/dL (8.3-10.6); Calcium (Corrected) 8.9 mg/dL (8.5-10.1); Carbon Dioxide 25.8 mMol/L (20.0-31.0); Chloride 107 mMol/L (98-107); Globulin 2.3 gm/dL (2.3-3.5); Glucose 125 mg/dL (74-106); Magnesium 1.9 mg/dL (1.6-2.6); Osmolality,Calculated 280 (275-295); Phosphorous 3.6 mg/dL (2.4-5.1); Potassium 3.8 mMol/L (3.4-5.1); Sodium 140 mMol/L (136-145); Total Protein 6.2 gm/dL (5.7-8.2); eGFR > 60 See Note
[2024-11-23 03:43] LABS: Basophils # (Auto) 0.1 Thou/mm3 (0.0-0.2); Basophils % (Auto) 1 % (0-2.5); Eosinophils # (Auto) 0.2 Thou/mm3 (0.0-0.5); Eosinophils % (Auto) 2 % (0-10); Hematocrit 41.4 % (41.0-53.0); Hemoglobin 14.6 g/dL (13.5-16.0); Immature Granulocytes % (Auto) 0 % (0-0); Immature Granulocytes Auto 0.04 Thou/mm3 (0.00-0.00); Lymphocytes # (Auto) 2.1 Thou/mm3 (1.0-4.8); Lymphocytes % (Auto) 20 % (10-50); Mean Corpuscular HGB Conc 35.3 g/dl (31.0-37.0); Mean Corpuscular Hemoglobin 31.3 pg (25.0-35.0); Mean Corpuscular Volume 89 fL (80-100); Monocytes % (Auto) 10 % (0-12); Neutrophils % (Auto) 67 % (37-80); Nucleated Red Blood Cell % 0 /100 WBC (0); Platelet Count 136 Thou/mm3 (140-440); RDW Standard Deviation 41.9 fL (35.1-43.9); Red Blood Count 4.67 Miln/mm3 (4.50-5.90); White Blood Count 10.5 Thou/mm3 (3.8-10.6)
--- NOTE | 2024-11-23 03:46 | PC.NURSE ---
Current PTT 52 per protocol keep rate same and repeat PTT ordered 944
[2024-11-23 03:58] VITALS: BP 137/70; PULSE 54; RESP 18; TEMP 36.5; O2SAT 92
[2024-11-23 07:49] VITALS: BP 120/70; PULSE 51; RESP 17; TEMP 37; O2SAT 93
[2024-11-23] MEDS: PANTOPRAZOLE INJ 40 MG VIAL IVP (08:09)
--- NOTE | 2024-11-23 08:30 | PD.SURPROG ---
Documentation for date of: 11/23/24 Subjective Subjective Narrative: Patient is seen and examined. He is resting comfortably. He denies abdominal pain. Exam Vital Signs Temp Pulse Resp BP Pulse Ox O2 Del Method O2 Flow Rate 98.6 F 51 L 17 120/70 93 L Room Air 1 11/23/24 07:49 11/23/24 07:49 11/23/24 07:49 11/23/24 07:49 11/23/24 07:49 11/23/24 07:49 11/22/24 11:48 Constitutional Constitutional: no acute distress Routine Abdominal Exam Abdominal: Present soft and normoactive bowel sounds; Absent tenderness or distended Assessment & Plan Diagnosis (1) Infarction of spleen: Status: Acute Assessment Additional comments: His cardiac echo did not show evidence of vegetation. Patient is asymptomatic Plan Start patient on diabetic diet. Patient can be discharged from surgical standpoint. May continue aspirin. Follow-up with Dr Abraham in 2 weeks
--- NOTE | 2024-11-23 09:29 | PD.RESDS ---
Planned Discharge Date 11/23/24 DS: Providers Provider Date of admission: 11/22/24 01:50 Primary care physician: Physician No Primary/Family Admitting Provider: Ken Jeffrey MD Attending Provider on Admission: Dane Luz MD Consults: 11/22/24 01:30 Consult to General Surgery Stat Comment: Consulting Provider: Lucero Abraham Attending Provider on DC: Quinton Puentes MD Discharging Provider: Quinton Puentes MD DS: Diagnosis Problem List Completed Was Problem List Reviewed/Reconciled?: Yes Hospital Course Hospital Course Hospital course: Cj Santos is a 64-year-old male with a PMHx of CAD status post stent (2001 or 2002), type 2 diabetes mellitus, and hypertension who presented on 11/22 with acute onset epigastric/left upper quadrant abdominal pain. Patient states that pain started at 1 PM on 0/, 9/10 in intensity, that waxed and waned. Denies trauma, nausea, vomiting, change in bowel habits, chest discomfort, shortness of breath. CT A/P showed splenic infarction and CTA A/P showed possible thrombus in branch of splenic artery. Seen and examined at bedside in ED. Upon further history, patient states he has a history of fast heart rate and used to follow-up with journalism teacher, Dr. Tejada, but has been years since he has last seen him due to being unemployed and loss of insurance. Denies being on any blood thinners other than baby aspirin. Otherwise, patient did not have any other complaints. General surgery was consulted and patient was started on heparin drip and IVF given NPO status for possible surgery. Stat echo obtained and did not show any vegetations. Following day, patient no longer endorsed any abdominal pain and cleared for discharge from surgical standpoint with follow-up outpatient in two weeks. Given that CBC and chem panel unremarkable, VSS, and no longer symptomatic then patient was also cleared for discharge from medicine standpoint. Will be discharged on eliquis 10 mg BID for 7 days and 5 mg BID for 23 more days and continue management per PCP for three to six months. Additionally, since eliquis was started home aspirin changed from 325 to 81 mg daily. Otherwise, instructed to return to the ED if symptoms worsen or recur. Diagnoses during admission: #Acute abdominal pain #Splenic infarct #History of CAD #Hypertension #Hyperlipidemia #Type 2 diabetes mellitus Discharge instructions: - When you go home today, take two tablets of 5 mg eliquis in the evening - Take two tablets of 5 mg eliquis twice per day (total of 20 mg for one day) for 7 days - Then take one tablet of 5 mg eliquis twice per day (total of 10 mg for one day) for 23 more days, unless changed by PCP - Follow-up with PCP within 1 week of discharge to determine whether to continue eliquis for a total of 3 or 6 months - Given addition of eliquis, your aspirin dosage has been changed from 325 mg to 81 mg once daily - Follow-up with general surgeon, Dr. Abraham, within two weeks of discharge - Continue all other home medications as prescribed - Return to the ED if symptoms worsen or recur ----- Plan discussed with attending physician Dr. Sukh Puentes MD PGY-1 Internal Medicine Time Spent with Patient Time attestation: Total time spent providing and/or coordinating discharge services: Exam Vital Signs Temp Pulse Resp BP Pulse Ox O2 Del Method O2 Flow Rate 98.6 F 51 L 17 120/70 93 L Room Air 1 11/23/24 07:49 11/23/24 07:49 11/23/24 07:49 11/23/24 07:49 11/23/24 07:49 11/23/24 07:49 11/22/24 11:48 Narrative Exam General: AOx3, no acute distress, able to speak full sentences HEENT: NC/AT, mucous membranes moist, bilateral sclera anicteric Cardiovascular: regular rate and rhythm, S1/S2 present, no murmurs appreciated Pulmonary: clear to auscultation bilaterally, no rales/rhonchi/wheezes Abdominal: nontender, soft, non-distended, no rebound/guarding Musculoskeletal: normal ROM, no peripheral edema, dorsalis pedis pulses 3+ Skin: warm and dry, intact, no rashes Neuro: CN II-XII intact, no focal deficits Discharge Plan Plan Patient Disposition: HOME (Self Care) Care Plan Goals: - When you go home today, take two tablets of 5 mg eliquis in the evening - Take two tablets of 5 mg eliquis twice per day (total of 20 mg for one day) for 7 days - Then take one tablet of 5 mg eliquis twice per day (total of 10 mg for one day) for 23 more days, unless changed by PCP - Follow-up with PCP within 1 week of discharge to determine whether to continue eliquis for a total of 3 or 6 months - Given addition of eliquis, your aspirin dosage has been changed from 325 mg to 81 mg once daily - Follow-up with general surgeon, Dr. Abraham, within two weeks of discharge - Continue all other home medications as prescribed - Return to the ED if symptoms worsen or recur Prescriptions/Referrals Prescriptions/Med Rec: New aspirin 81 mg tablet,delayed release (DR/EC) 81 mg PO QDAY Qty: 30 0RF Eliquis 5 mg tablet See Rx Instructions .ROUTE .COMPLEX Qty: 74 0RF Rx Instructions: Take two tablets PO BID x7 days, then one tablet PO BID thereafter Continued losartan 50 mg Tablet 50 mg PO QDAY famotidine 40 mg Tablet 40 mg PO QDAY PRN (Reason: Heartburn) metoprolol succinate 25 mg tablet extended release 24 hr 25 mg PO QDAY repaglinide 1 mg Tablet 1 mg PO QDAY rosuvastatin 20 mg tablet 20 mg PO QDAY Patient Comments: TAKE 1 TABLET BY MOUTH EVERY DAY Janumet XR 50-1,000 mg tablet, ER multiphase 24 hr 1 tab PO QDAY Discontinued aspirin 325 mg Tablet 325 mg PO QDAY Referrals: No Primary/Family,Physician [Primary Care Provider] - Patient/Caregiver Discharge Instructions Education Materials: Preventing Deep Vein Thrombosis, Diabetes and High Blood Pressure Print Language: Yoruba Stand Alone Forms: [place] Award Info., Patient Portal Info Letter Discharge Order Discharge Orders: Discharge (Routine); Ordered 11/23/24 Ordered By: Quinton Hill [facility] Quality Discharge Quality Measures VTE prophylaxis Attestestation Attestation Face to face evaluation was performed by me. I have personally seen and examined the patient. I discussed the assessment and plan with the entire medicine team. I reviewed available medical records, imaging studies, laboratory results. I agree with the above subjective data, objective findings, assessment and plan except as corrected by me or noted below Splenic infarct Left upper quadrant pain due to above, intractable Splenic artery branch thrombosis -Was placed on IV heparin drip, no surgical intervention recommended as clinically patient is improving, he is pain-free at this point. Transition to p.o. apixaban starter pack dosage, recommend 3-6 months of therapy patient to follow-up with PCP. If symptoms get worse return to the emergency room. More than > 30 minutes spent on the encounter
[2024-11-23 09:32] VITALS: PULSE 58; RESP 16; O2SAT 93
[2024-11-23] MEDS: APIXABAN 2.5 MG TABLET 10 MG PO (09:45)
[2024-11-23 10:55] LABS: Partial Thromboplastin Time 52.1 Seconds (22.0-36.0)
--- NOTE | 2024-11-23 15:58 | PC.CC ---
Patient discharged on Eliquis for splenic thrombus but listed as self-pay. S/W Ariel who advised patient does not have insurance and Rx was placed on hold per his request due to cost $600+ with [facility] card. [facility]el reports they have 5mg tablets in stock only, not DVT/PE Dose Pack. S/W Dr. Sergio Puentes and requested corrected E-Rx for 5mg tablets #74 with DVT/PE dosing. Provided Eliquis Free Trial Card to Ariel who confirmed $0 co-pay. S/W patient by phone and provided update. Emphasized importance of provider follow-up and obtaining Rx insurance in the next month as he is expected to continue on Eliquis. Patient confirms he will pursue Rx insurance. No additional needs at this time.
== END 2024-11-23 11:20 | disposition home or self-care (01) | DRG 816 ==
LOC: SERX 21:20 → SERHOLD 11-22 01:59 → S3NX 11-22 10:18
PROVIDERS: Physician Assistant; Student in an Organized Health Care Education/Training Program; Admitting Provider Student in an Organized Health Care Education/Training Program; Emergency Provider Emergency Medicine; Visit Provider Internal Medicine
DX: D73.5 Infarction of spleen (principal); I10 Essential (primary) hypertension; I25.10 Atherosclerotic heart disease of native coronary artery without angina pectoris; E11.9 Type 2 diabetes mellitus without complications; F17.210 Nicotine dependence, cigarettes, uncomplicated; I48.91 Unspecified atrial fibrillation; E78.5 Hyperlipidemia, unspecified; Z79.82 Long term (current) use of aspirin; Z56.0 Unemployment, unspecified; Z95.5 Presence of coronary angioplasty implant and graft; I25.2 Old myocardial infarction; Z79.899 Other long term (current) drug therapy
CPT/HCPCS: 36415; 71045; 74174; 74177; 80053; 80061; 81001; 83036; 83605; 83690; 83735; 84100; 84145; 84443; 84484; 85025; 85610; 85730; 87040; 93005; 93306; 96361; 96374; 96375; 96376; 99285; A4649; J1643; J1644; J2405; J2470; J3490; J7030; Q9967; A9270